=== PATIENT | female | born 1950 | race Caucasian/White ===

== ENCOUNTER → 2021-08-02 | Outpatient (CLI) | payer MEDICARE | LOC: CT 12:06 | DX: C18.8 Malignant neoplasm of overlapping sites of colon (principal) | CPT/HCPCS: 71260; Q9967 ==

== ENCOUNTER → 2021-08-27 | Day surgery (SDC) | payer MEDICARE ==
[~2021-08-27] MED LIST: ASCORBIC ACID500 MG PO; D3-200050 MCG PO; DIVALPROEX SOD500 MG PO; LEVOTHYROXINE100 MCG PO; METOPROLOL TART25 MG PO; ST. JOSEPH ASPI81 M1 PO; TRAMADOL HCL50 MG PO
== END | disposition home or self-care (01) ==
LOC: OR 06:17
DX: C18.9 Malignant neoplasm of colon, unspecified (principal); I10 Essential (primary) hypertension; E78.5 Hyperlipidemia, unspecified; E03.9 Hypothyroidism, unspecified; F32.A Depression, unspecified; Z88.0 Allergy status to penicillin; Z90.49 Acquired absence of other specified parts of digestive tract; Z87.891 Personal history of nicotine dependence; Z20.822 Contact with and (suspected) exposure to COVID-19
CPT/HCPCS: 77001; 82962; C1769; C1788; J1100; J1642; J1885; J2001; J2405; J2704; J7030; J7040; J7120

== ENCOUNTER 2021-10-10 13:11 | Observation (INO) | payer MEDICARE ==
[~2021-10-10] VITALS: Ht 172.7 cm; Wt 79.4 kg
[~2021-10-10 13:11] MED LIST changes: +DIVALPROEX SOD250 MG PO; -DIVALPROEX SOD500 MG PO
[2021-10-10 13:33] LABS: HEMOGLOBIN 15.1 gm/dl (12.3-15.3); RED BLOOD COUNT 5.14 M/UL (4.00-5.10); WHITE BLOOD COUNT 5.3 K/UL (4.5-11.0)
[2021-10-10 13:51] LABS: BUN/CREATININE RATIO 18 (0-10)
[2021-10-10] MEDS ORDERED: LOPERAMIDE2 MG PO (14:23)
[2021-10-11] MEDS ORDERED: CLOPIDOGREL75 MG PO (17:56)
[2021-10-11] MEDS ORDERED: K-TAB ER20 MEQ PO (18:00)
[2021-10-11] MEDS ORDERED: CRESTOR10 MG PO (18:00)
== END 2021-10-11 18:42 | disposition home health service (06) ==
LOC: ER1 13:11 → M/S 14:41 → CDU 14:41 → M/S 19:48
PROVIDERS: Student in an Organized Health Care Education/Training Program; ADMIT Internal Medicine
DX: G45.9 Transient cerebral ischemic attack, unspecified (principal); R53.1 Weakness; B91 Sequelae of poliomyelitis; R47.81 Slurred speech; C79.9 Secondary malignant neoplasm of unspecified site; R11.0 Nausea; T45.1X5A Adverse effect of antineoplastic and immunosuppressive drugs, initial encounter; I10 Essential (primary) hypertension; E03.9 Hypothyroidism, unspecified; F17.200 Nicotine dependence, unspecified, uncomplicated; C18.9 Malignant neoplasm of colon, unspecified; H57.89 Other specified disorders of eye and adnexa; I65.22 Occlusion and stenosis of left carotid artery; M19.90 Unspecified osteoarthritis, unspecified site; R74.01 Elevation of levels of liver transaminase levels; E87.6 Hypokalemia; D68.59 Other primary thrombophilia; Z79.890 Hormone replacement therapy; Z79.82 Long term (current) use of aspirin; Z79.899 Other long term (current) drug therapy; Z88.0 Allergy status to penicillin; Z86.73 Personal history of transient ischemic attack (TIA), and cerebral infarction without residual deficits; Z87.19 Personal history of other diseases of the digestive system
CPT/HCPCS: ECHO; 70450; 70496; 70498; 70551; 80053; 82550; 82553; 84484; 85025; 85610; 85730; 92610; 93306; 96374; 96376; 97161; 97166; 99285; G0378; J2405

== ENCOUNTER → 2021-11-19 | Outpatient (CLI) | payer MEDICARE ==
[~2021-11-19] MED LIST changes: +CLOPIDOGREL75 MG PO; +CRESTOR10 MG PO; +K-TAB ER20 MEQ PO; +LOPERAMIDE2 MG PO
== END ==
LOC: CT 12:21
DX: C18.8 Malignant neoplasm of overlapping sites of colon (principal)
CPT/HCPCS: 71260; Q9967

== ENCOUNTER → 2022-02-13 | Outpatient (CLI) | payer MEDICARE | LOC: CT 10:00 | DX: C18.8 Malignant neoplasm of overlapping sites of colon (principal); R91.8 Other nonspecific abnormal finding of lung field | CPT/HCPCS: 71260; Q9967 ==